=== PATIENT | male | born 1995 | race Caucasian/White ===

== ENCOUNTER 2021-09-21 15:12 | Outpatient (CLI) | payer OTHER, SELFPAY ==
--- NOTE | 2021-09-21 15:18 | XR_ITS ---
WS: [id number] Sinus series, 3 views, 09/21/2021 Clinical Data: ACUTE SINUSITIS Comparison: None. Findings: No air-fluid levels are seen in the sinuses. There is no mucoperiosteal thickening. The orbits and na yuni bones are not remarkable. The paranasal sinuses are clear. XR/XR sinus min 3V* [id number] Impression: Negative sinus series.
== END 2021-09-21 15:13 | disposition home or self-care (01) ==
LOC: RAD 15:16
PROVIDERS: PCP Nurse Practitioner Family; Visit Provider Nurse Practitioner Family
DX: J01.90 Acute sinusitis, unspecified (principal)
CPT/HCPCS: 70220

== ENCOUNTER 2021-12-28 07:10 | Outpatient (CLI) | payer OTHER, SELFPAY ==
--- NOTE | 2021-12-28 07:16 | US_ITS ---
WS: [id number] TESTICULAR ULTRASOUND HISTORY: TESTICULAR PAIN, LEFT COMPARISON: None available. TECHNIQUE: Real-time and color Doppler imaging or utilized to perform a testicular ultrasound. Right testicle: 4.7 cm x 3.0 cm x 2.2 cm. Normal size and echogenicity. No mass or torsion. Normal color Doppler is present throughout. Systolic and diastolic velocities are both present. No significant hydrocele. Right epididymis: Normal epididymis with no increased vascularity. Left testicle: 4.9 cm x 3.0 cm x 2.3 cm. Normal size and echogenicity. No mass or torsion. There is slight increased vascularity and hyperemia throughout the LEFT testicle as compared to the R IGHT. Normal systolic and diastolic velocities. No significant hydrocele. Left epididymis: Small spermatocele in the LEFT epididymal head measures 5 mm. Normal vascularity evident on head. Mildly enlarged LEFT pampiniform plexus. US/US scrotum [id number] IMPRESSION: 1. Mild acute LEFT orchitis. No mass or torsion identified. 2. Small LEFT epididymal head spermatocele. 3. Mild LEFT varicocele.
== END 2021-12-28 07:11 | disposition home or self-care (01) ==
LOC: RAD 07:13
PROVIDERS: PCP Nurse Practitioner Family; Visit Provider Nurse Practitioner Family
DX: N45.2 Orchitis (principal); N43.41 Spermatocele of epididymis, single; I86.1 Scrotal varices
CPT/HCPCS: 76870

== ENCOUNTER → 2023-05-10 10:18 | Outpatient (BNVA) | payer BC, SELFPAY | PROVIDERS: PCP Nurse Practitioner Family; Visit Provider Registered Nurse Neonatal Intensive Care | DX: T18.9XXA Foreign body of alimentary tract, part unspecified, initial encounter (principal); X58.XXXA Exposure to other specified factors, initial encounter | CPT/HCPCS: 71046 ==

== ENCOUNTER 2025-01-27 07:23 | Outpatient (CLI) | payer BC, SELFPAY | END 2025-01-27 07:24 | disposition home or self-care (01) | LOC: SLEEP 07:26 | PROVIDERS: PCP Nurse Practitioner Family; Visit Provider Family Medicine | DX: G47.33 Obstructive sleep apnea (adult) (pediatric) (principal); G47.36 Sleep related hypoventilation in conditions classified elsewhere | CPT/HCPCS: G0399 ==